=== PATIENT | male | born 1960 | race Caucasian/White ===

== ENCOUNTER 2021-04-24 09:14 | Inpatient (IN) | payer MEDICARE, OTHER ==
[~2021-04-24] VITALS: Ht 188 cm; Wt 99.8 kg
[~2021-04-24 09:14] MED LIST: HYDROCODON-ACE1 EAC9 PO; LISINOPRIL20 MG PO; TIZANIDINE HCL4 MG PO; TYLENOL WITH C1 EACH PO; VITAMIN B-121000 MCG PO
[2021-04-24] MEDS ORDERED: ASPIRIN 81 MG CHEW TAB PO STA (09:24)
[2021-04-24] MEDS ORDERED: NITROGLYCERIN 2% OINT 1 GM PKT TOP STA (09:24)
[2021-04-24] MEDS ORDERED: MIDAZOLAM HCL 2 MG/2 ML VIAL ONE ×2 (09:37→10:28)
[2021-04-24] MEDS ORDERED: FENTANYL CITRATE/PF 100MCG/2 ML INJ ONE (09:37)
[2021-04-24] MEDS ORDERED: HEPARIN SOD/SOD CHLORIDE 2,000 ML ONE (09:37)
[2021-04-24] MEDS ORDERED: LIDOCAINE HCL 2% LOCAL 20 ML VIAL ONE (09:37)
[2021-04-24] MEDS ORDERED: IOPAMIDOL 370 MG/ML 200 ML INFUS..BTL INJ ONE (09:37)
[2021-04-24] MEDS ORDERED: SODIUM CHLORIDE 0.9% 1000ML 1,000 ML ONE (09:37)
[2021-04-24 09:45] LABS: BASOPHILS # (AUTO) 0.1 (0.0-0.1); BASOPHILS % 0.4 % (0.0-1.0); EOSINOPHILS % 0.1 % (0.0-6.0); HEMATOCRIT 48.6 % (38.2-49.6); HEMOGLOBIN 16.6 g/dL (14.0-18.0); LYMPHOCYTES # (AUTO) 1.6 (1.0-3.2); LYMPHOCYTES % 8.4 % (18.0-39.1); MEAN CORPUSCULAR HEMOGLOBIN 32.9 pg (28-32); MEAN CORPUSCULAR HGB CONC 34.2 g/dL (31-35); MEAN CORPUSCULAR VOLUME 96.4 fL (81-99); MONOCYTES # (AUTO) 1.5 (0.2-0.8); MONOCYTES % 7.9 % (4.4-11.3); NEUTROPHILS # (AUTO) 15.5 (2.1-6.9); NEUTROPHILS % 82.6 % (38.7-80.0); PLATELET COUNT 338 x10e3/uL (140-360); RED BLOOD COUNT 5.04 x10e6/uL (4.3-5.7); RED CELL DISTRIBUTION WIDTH 12.5 % (11.7-14.4)
[2021-04-24] MEDS ORDERED: CLOPIDOGREL BISULFATE 75 MG TAB ONE (09:46)
[2021-04-24] MEDS ORDERED: VERAPAMIL HCL 2.5 MG/ML 2 ML VIAL ONE (09:46)
[2021-04-24 10:00] LABS: ALBUMIN 4.2 g/dL (3.5-5.0); ALBUMIN/GLOBULIN RATIO 1.3 (0.8-2.0); ANION GAP 15.6 mmol/L (8-16); CALCIUM 9.2 mg/dL (8.4-10.2); CREATININE, SERUM 0.88 mg/dL (0.72-1.25); POTASSIUM 3.6 mmol/L (3.5-5.1)
[2021-04-24 10:06] LABS: CREATINE KINASE MB 70.7 ng/mL (0-5.0)
[2021-04-24 10:18] LABS: INR 0.96; PARTIAL THROMBOPLASTIN TIME 26.1 seconds (23.8-35.5); PROTHROMBIN TIME 13.5 seconds (11.9-14.5)
[2021-04-24 12:49] VITALS: BP 141/99
[2021-04-24 12:50] VITALS: BP 141/99
[2021-04-24 12:54] VITALS: BP 141/99
[2021-04-24 16:36] VITALS: BP 134/92
[2021-04-24] MEDS: METOPROLOL TARTRATE 25 MG TAB PO SCH (17:02)
[2021-04-24 19:48] VITALS: BP 145/100
[2021-04-24 20:00] VITALS: BP 140/99
[2021-04-24] MEDS: ATORVASTATIN 40 MG TAB PO SCH (21:53)
[2021-04-25] VITALS (7 sets, daily range): BP systolic 119–137; BP diastolic 72–91
[2021-04-25] MEDS: ASPIRIN 81 MG ENTERIC COATED PO SCH (09:00)
[2021-04-25] MEDS: METOPROLOL TARTRATE 25 MG TAB PO SCH ×2 (09:00→17:00)
[2021-04-25] MEDS: CLOPIDOGREL BISULFATE 75 MG TAB PO SCH (09:00)
[2021-04-25 10:49] LABS: CLARITY,URINE CLOUDY (CLEAR); COLOR,URINE YELLOW (YELLOW); KETONES,URINE 1+ (NEGATIVE); LEUKOCYTE ESTERASE ,URINE NEGATIVE (NEGATIVE); NITRITE,URINE NEGATIVE (NEGATIVE); PROTEIN,URINE DIPSTICK TRACE (NEGATIVE); URINE UROBILINOGEN 0.2 mg/dL (0.2 - 1)
[2021-04-25 11:07] LABS: BACTERIA,URINE MANY /HPF; EPITHELIAL CELLS,URINE RARE /LPF; RBC,URINE 0-5 /HPF (0-5); WBC,URINE (MAN) 0-5 /HPF (0-5)
[2021-04-25] MEDS ORDERED: HYDROCODONE/APAP 10MG-325MG TAB PO PRN (18:00)
[2021-04-25] MEDS ORDERED: TIZANIDINE HCL 4 MG TAB PO PRN (18:00)
[2021-04-25] MEDS ORDERED: IOPAMIDOL 370 MG/ML 200 ML INFUS..BTL INJ ONE (18:46)
[2021-04-25] MEDS ORDERED: SODIUM CHLORIDE 0.9% 50ML 50 ML ONE (18:46)
[2021-04-25] MEDS: ATORVASTATIN 40 MG TAB PO SCH (20:54)
[2021-04-26] VITALS (7 sets, daily range): BP systolic 97–121; BP diastolic 63–86
[2021-04-26 03:08] LABS: ABG HCO3 26 mmol/L (22-26); ABG PCO2 33 mmHg (35-45); ABG PH 7.51 (7.35-7.45); ABG PO2 62 mmHg (80-105); ABG TCO2 27
[2021-04-26] MEDS: ASPIRIN 81 MG ENTERIC COATED PO SCH (08:50)
[2021-04-26] MEDS: CLOPIDOGREL BISULFATE 75 MG TAB PO SCH (08:51)
[2021-04-26] MEDS: METOPROLOL TARTRATE 25 MG TAB PO SCH (08:51)
[2021-04-26] MEDS ORDERED: LOSARTAN POTASSIUM 100 MG TAB PO SCH (09:00)
== END 2021-04-26 15:43 | disposition home or self-care (01) | DRG 246 ==
LOC: ER 09:22 → CATH LAB 09:36 → IMCU 12:25 → MED/SURG 20:26
PROVIDERS: ADMIT Internal Medicine; ATTEND Internal Medicine
PROC: 027135Z Dilation of Coronary Artery, Two Arteries with Two Drug-eluting Intraluminal Devices, Percutaneous Approach (ICD-10-PCS; principal; 2021-04-24)
PROC: 4A023N7 Measurement of Cardiac Sampling and Pressure, Left Heart, Percutaneous Approach (ICD-10-PCS; 2021-04-24)
PROC: B2111ZZ Fluoroscopy of Multiple Coronary Arteries using Low Osmolar Contrast (ICD-10-PCS; 2021-04-24)
DX: I21.4 Non-ST elevation (NSTEMI) myocardial infarction (principal); I50.21 Acute systolic (congestive) heart failure; E78.5 Hyperlipidemia, unspecified; Z20.822 Contact with and (suspected) exposure to COVID-19; I25.10 Atherosclerotic heart disease of native coronary artery without angina pectoris; R09.02 Hypoxemia; I11.0 Hypertensive heart disease with heart failure
CPT/HCPCS: 36415; 36600; 71045; 71046; 71260; 80053; 81001; 82550; 82553; 82805; 83880; 84484; 85025; 85610; 85730; 92920; 92928; 93005; 93458; 94799; 99152; 99153; 99285; C1725; C1874; C1887; C1894; J2001; J2250; J3010; J7030; Q9967; U0002

== ENCOUNTER → 2021-06-04 | Outpatient (CLI) | payer MEDICARE, OTHER | LOC: CT 15:45 | PROVIDERS: ATTEND Internal Medicine | DX: R91.8 Other nonspecific abnormal finding of lung field (principal) | CPT/HCPCS: 71250 ==

== ENCOUNTER → 2024-09-06 | Outpatient (REF) | payer MEDICARE, BC | LOC: DX 08:21 | PROVIDERS: ATTEND Family Medicine | DX: Z13.820 Encounter for screening for osteoporosis (principal) | CPT/HCPCS: 77080 ==